=== PATIENT | female | born 1995 | race Caucasian/White ===

== ENCOUNTER → 2016-05-23 | Outpatient (CLI) | payer BC | LOC: COL.RAD 10:22 | DX: R11.0 Nausea (principal) ==

== ENCOUNTER → 2017-09-14 | Outpatient (CLI) | payer BC | LOC: COL.RAD 12:02 | DX: R11.0 Nausea (principal) | CPT/HCPCS: A9537 ==

== ENCOUNTER 2019-02-21 07:17 | Day surgery (SDC) | payer BC ==
[~2019-02-21] VITALS: Ht 162.6 cm; Wt 54.7 kg
[2019-02-21] MEDS ORDERED: ALLEGRA 180MG180 MG PO (07:34)
[2019-02-21] MEDS ORDERED: LO LOESTRIN FE1 TAB PO (07:34)
[2019-02-21] MEDS ORDERED: SINGULAIR 110 MG/TAB PO (07:34)
[2019-02-21] MEDS ORDERED: ZOLOFT 100MG100 MG PO (07:34)
[2019-02-21 07:35] VITALS: BP 98/67; PULSE 82; TEMP 99.4
[2019-02-21 08:45] VITALS: BP 100/69; PULSE 69; TEMP 98.1
--- NOTE | 2019-02-21 08:45 | NUR ---
TO BAY 3 PER CART FROM ENDOSCOPY. ALERT ORIENTED X3, TALKING TO STAFF AND SISTER. AMBULATED TO RECLINER WITH ASSIST AND TOLERATED WELL.
[2019-02-21 09:00] VITALS: BP 105/72; PULSE 81
--- NOTE | 2019-02-21 09:00 | NUR ---
RECEIVED WATER AND REFUSED ANYTHING TO EAT AT THIS TIME.
[2019-02-21 09:15] VITALS: BP 105/72; PULSE 81
--- NOTE | 2019-02-21 09:15 | NUR ---
RESTING QUIETLY AND TALKING WITH SISTER AND TEXTING.
[2019-02-21 09:30] VITALS: BP 107/70; PULSE 66
--- NOTE | 2019-02-21 09:30 | NUR ---
DISCONTINUED IV AND INT- CATHETER INTACT PATIENT GETTING DRESSED
--- NOTE | 2019-02-21 09:45 | NUR ---
DR HICKMAN INTO TALK WITH PATIENT AND SISTER.
--- NOTE | 2019-02-21 10:00 | NUR ---
DISCHARGED PER WC BY NURSING STAFF TO PRIVATE CAR IN CARE OF SISTER RICKI MOORE.
== END 2019-02-21 10:00 | disposition home or self-care (01) ==
LOC: SDCO 07:17
DX: R14.0 Abdominal distension (gaseous) (principal); R14.2 Eructation; K63.9 Disease of intestine, unspecified; K59.00 Constipation, unspecified; K62.89 Other specified diseases of anus and rectum
CPT/HCPCS: J0461; J2704; J3010; J7030

== ENCOUNTER 2020-12-21 02:49 | Outpatient (CLI) | payer BC ==
[~2020-12-21] VITALS: Ht 162.6 cm; Wt 69.1 kg
[~2020-12-21 02:49] MED LIST: ALLEGRA 180MG180 MG PO; LO LOESTRIN FE1 TAB PO; SINGULAIR 110 MG/TAB PO; ZOLOFT 100MG100 MG PO
[2020-12-21 03:30] VITALS: BP 112/64; PULSE 66; TEMP 98.4
[2020-12-21 04:00] VITALS: BP 106/60; PULSE 72
[2020-12-21 04:30] VITALS: BP 111/65; PULSE 73
--- NOTE | 2020-12-21 04:34 | NUR ---
POC REVIEWED WITH PATIENT. PT AGREEABLE TO GO HOME AND RETURN WITH WORSENING SYMPTOMS. ALL DC PAPERWORK AND INSTRUCTIONS REVIEWED AND UNDERSTOOD. CATEGORY 1 STRIP NOTED PRIOR TO REMOVING EFM. PT DENIES FURTHER QUESTIONS OR CONCERNS AT THIS TIME.
[2020-12-21] MEDS ORDERED: PRENATAL (16:56)
[2020-12-22] MEDS ORDERED: IBU600 MG PO (09:37)
== END 2020-12-21 04:40 | disposition home or self-care (01) ==
LOC: LDRO 02:49 → LDR 04:02 → LDRO 04:40
DX: Z34.90 Encounter for supervision of normal pregnancy, unspecified, unspecified trimester (principal)
CPT/HCPCS: OP

== ENCOUNTER 2020-12-21 15:40 | Inpatient (IN) | payer BC ==
[2020-12-21] VITALS (17 sets, daily range): BP systolic 97–133; BP diastolic 55–80; PULSE 64–108; TEMP 97.9–98.2
[~2020-12-21] VITALS: Ht 162.6 cm; Wt 69.1 kg
--- NOTE | 2020-12-21 15:50 | NUR ---
Pt arrived on unit with complaints of contractions and possible ROM at 1200. EFM and toco monitors started. Vital signs WNL. SVE by this RN /-2 with positive amniotrace and clear fluid on exam. Dr. Pal notified. See physician notification for details.
[2020-12-21] MEDS ORDERED: PRENATAL (16:56)
[2020-12-21 16:57] LABS: BASO % 0.2 % (0.0-2.0); EOS % 0.3 % (0-4.0); GRAN % 80.8 % (42.2-75.2); HEMOGLOBIN 12.3 g/dl (12.5-16.0); LYMPH # 1.2 (1.2-3.4); LYMPH % 9.6 % (20.0-51.0); MEAN CELL VOLUME 93 fl (80.0-100.0); MEAN CORPUSCULAR HEMOGLOBIN 31 pg (27.0-31.0); MEAN CORPUSCULAR HGB CONC 34 g/dl (33.0-37.0); MEAN PLATELET VOLUME 11.7 fl (7.4-10.4); MONO % 8.1 % (1.7-9.3); PLATELET COUNT 187 K/mm3 (130-400); RED BLOOD COUNT 3.94 M/mm3 (4.10-5.30); REDCELL DISTRIBUTION WIDTH-CV 13.2 % (11.5-14.5)
[2020-12-21 17:02] LABS: HEMATOCRIT 36.7 % (37.0-47.0)
--- NOTE | 2020-12-21 19:23 | NUR ---
PT AMBULATING IN HALLWAYS, EFM/TOCO NOT TRACING AT THIS TIME. CATEGORY 1 STRIP UPON REMOVING EFM. CONTRACTIONS REGULAR AND INCREASING IN INTENSITY Q3-5MIN. PT CONTINUES TO REFUSE PITOCIN AT THIS TIME. WANTS TO "SEE IF I CAN DO THIS ON MY OWN FIRST."
--- NOTE | 2020-12-21 22:10 | NUR ---
2210: PT REPORTS CONSTANT URGE TO PUSH. SVE COMPLETE/+1 STATION. NOTIFIED OF CURRENT STATUS. SEE PHYS NOTIFICATION. BEGIN PREPARING FOR DELIVERY AT THIS TIME. 2220: AT BEDSIDE, PT BEGINS PUSHING. AT THIS TIME. 2228: SPONTANEOUS VAGINAL DELIVERY OF VIABLE FEMALE AT THIS TIME. PLACED ON MATERNAL ABDOMEN. CORD CLAMPED X2 AND CUT BY FOB, CARE OF ASSUMED BY OVIDIO [place]UST[place]. 2237: SPONTANEOUS DELIVERY OF PLACENTA. PITOCIN STARTED PER PROTOCOL. SUTURING LACERATION AT THIS TIME. PT TOLERATING PROCEDURE WELL. FUNDUS FIRM AND LOCHIA WNL. WILL CONTINUE WITH CARES PER PROTOCOL.
[2020-12-22] VITALS (8 sets, daily range): BP systolic 100–111; BP diastolic 51–65; PULSE 64–84; TEMP 97.7–98.4
--- NOTE | 2020-12-22 00:35 | NUR ---
PT'S LOCHIA WNL, NO CLOTS. PAIN MANAGEABLE. PT AGREEABLE TO TRY AND AMBULATE TO RESTROOM TO GET CLEANED UP. STRONG STEADY GAIT NOTED. ELIZABETH CARE PROVIDED. CLEAN GOWN/UNDERWEAR/PAD PLACED ON PATIENT. VOIDED 250CC BLOOD TINGED URINE. ASSISTED INTO WHEELCHAIR AND TRANSFERRED TO PP ROOM AT THIS TIME. STABLE CONDITION. ORIENTED TO PP ROOM. EDUCATED AND UPDATED ON PP POC. DENIES FURTHER QUESTIONS OR CONCERNS AT THIS TIME. CALL LIGHT WITHIN REACH AND INFANT TO BREAST UPON EXITING ROOM.
[2020-12-22] MEDS ORDERED: IBU600 MG PO (09:37)
--- NOTE | 2020-12-22 12:14 | NUR ---
Degreaser Operator offered congrats to patient while family was in room.
[2020-12-23 03:00] VITALS: BP 110/64; PULSE 70; TEMP 97.8
[2020-12-23 07:55] VITALS: BP 107/64; PULSE 79; TEMP 97.6
== END 2020-12-23 11:31 | disposition home or self-care (01) | DRG 807 ==
LOC: LDRO 15:40 → LDR 16:14 → OB 12-22 00:35
PROVIDERS: Obstetrics & Gynecology; ADMIT Student in an Organized Health Care Education/Training Program
PROC: 10E0XZZ Delivery of Products of Conception, External Approach (ICD-10-PCS; principal; 2020-12-21)
PROC: 0KQM0ZZ Repair Perineum Muscle, Open Approach (ICD-10-PCS; 2020-12-21)
DX: O99.02 Anemia complicating childbirth (principal); Z37.0 Single live birth; O99.344 Other mental disorders complicating childbirth; F41.9 Anxiety disorder, unspecified; O70.1 Second degree perineal laceration during delivery; D64.9 Anemia, unspecified; O69.81X0 Labor and delivery complicated by cord around neck, without compression, not applicable or unspecified; Z3A.40 40 weeks gestation of pregnancy
CPT/HCPCS: J0595; J2590; J7120